=== PATIENT | female | born 2005 | race Caucasian/White ===

== ENCOUNTER 2023-09-16 17:00 | Outpatient (CLI) | payer BC | END 2023-09-16 17:01 | disposition home or self-care (01) | LOC: SLEEPLAB 17:00 | PROVIDERS: ATTEND Nurse Practitioner Family | DX: G47.33 Obstructive sleep apnea (adult) (pediatric) (principal); R53.83 Other fatigue; G47.61 Periodic limb movement disorder; R51.9 Headache, unspecified; F41.8 Other specified anxiety disorders; K21.9 Gastro-esophageal reflux disease without esophagitis; E66.9 Obesity, unspecified; G47.00 Insomnia, unspecified; R73.03 Prediabetes; R06.83 Snoring; Z68.31 Body mass index [BMI] 31.0-31.9, adult | CPT/HCPCS: 95800 ==